=== PATIENT | male | born 1960 | race African-American/Black ===

== ENCOUNTER 2018-02-01 04:28 | Emergency (ER) | payer SELFPAY ==
[~2018-02-01] VITALS: Ht 170.2 cm; Wt 74.8 kg
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
[2018-02-01 04:43] VITALS: BP 116/69
[2018-02-01 05:08] VITALS: BP 116/69
== END 2018-02-01 05:00 ==
LOC: EMR 04:48
DX: S00.81XA Abrasion of other part of head, initial encounter (principal); F10.129 Alcohol abuse with intoxication, unspecified; W22.8XXA Striking against or struck by other objects, initial encounter; Y92.810 Car as the place of occurrence of the external cause
CPT/HCPCS: 99283